=== PATIENT | female | born 1980 | race Two or more races ===

== ENCOUNTER 2016-10-27 13:36 | Emergency (ER) | payer MEDICAID ==
[~2016-10-27] VITALS: Ht 162.6 cm; Wt 65.4 kg
[2016-10-27 13:38] VITALS: BP 134/89
== END 2016-10-27 14:21 | disposition home or self-care (01) ==
LOC: ED 14:07
DX: K08.89 Other specified disorders of teeth and supporting structures (principal); F17.200 Nicotine dependence, unspecified, uncomplicated
CPT/HCPCS: 99283